=== PATIENT | male | born 1965 | race Caucasian/White ===

== ENCOUNTER 2017-02-11 10:18 | Emergency (ER) | payer OTHER ==
--- NOTE | 2017-02-17 11:08 | ER ---
ADMIT: 02/11/2017 RM/LOC: ER [facility] MR#: [id number] [address] [id number] ESHA LOPEZ [address] [place] [address] Emergency Room Report SEX: M AGE: 51 : 1965 DATE: 02/11/2017 ADDENDUM: This 51-year-old white male coming with headache, nausea, vomiting. He does have migraines as well. We did give him Decadron, Toradol, Zofran, and morphine, we broke that. Gave him fluid. We are going to discharge him home and follow up with Dr. Abraham. CONDITION ON DISCHARGE: Good. Ashwin Morel MD/ jeremias JOB #: [id number] CC: Ashwin Morel MD, Attending Physician bAraham Abraham DO, Family Physician
== END 2017-02-11 14:30 | disposition home or self-care (01) ==
LOC: ER 10:18
DX: G44.209 Tension-type headache, unspecified, not intractable (principal); Z98.1 Arthrodesis status; G43.909 Migraine, unspecified, not intractable, without status migrainosus